=== PATIENT | female | born 1965 | race African-American/Black ===

== ENCOUNTER 2024-05-21 17:20 | Emergency (ER) | payer OTHER ==
[~2024-05-21] VITALS: Ht 172.7 cm; Wt 64.0 kg
[2024-05-21] MEDS: FENTANYL CITRATE/PF 50MCG/ML 2ML VIAL IV ONE (18:41)
[2024-05-21] MEDS: PROPOFOL 200MG/20ML VIAL IV NR (19:00)
[2024-05-21 19:56] VITALS: O2SAT 100
[2024-05-21] MEDS ORDERED: IBUP-2030 MT (20:01)
[2024-05-21] MEDS ORDERED: HYDR-4001 MT (20:16)
[2024-05-21 21:57] VITALS: BP 110/80; PULSE 74; RESP 23; TEMP 36.78072; O2SAT 99
== END 2024-05-21 22:03 | disposition home or self-care (01) ==
LOC: ER 17:20
DX: S82.52XA Displaced fracture of medial malleolus of left tibia, initial encounter for closed fracture (principal); X58.XXXA Exposure to other specified factors, initial encounter; Y93.89 Activity, other specified; Y92.89 Other specified places as the place of occurrence of the external cause; Y99.8 Other external cause status
CPT/HCPCS: 73590; 73600; 73610; 73620; 27762; 96374; 99152; 99285; J3010; J2704; Z7610 ×3